=== PATIENT | female | born 1995 | race Caucasian/White ===

== ENCOUNTER 2017-12-20 13:49 | Emergency (ER) | payer OTHER ==
[2017-12-20] MEDS ORDERED: Ibuprofen 200 MG TAB ONE (14:30)
[2017-12-20] MEDS ORDERED: Dexamethasone 10 MG/ML VIAL ONE (14:32)
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
== END 2017-12-20 15:41 | disposition home or self-care (01) ==
LOC: EDBD 13:49 → ERS 13:49
DX: R05 Cough (principal); R51 Headache; V89.2XXA Person injured in unspecified motor-vehicle accident, traffic, initial encounter
CPT/HCPCS: 71046; 94640; J1100; J7620